=== PATIENT | male | born 1985 | race African-American/Black ===

== ENCOUNTER 2025-01-23 18:26 | Emergency (ER) | payer OTHER, SELFPAY ==
[2025-01-23] VITALS (12 sets, daily range): BP systolic 118–156; BP diastolic 68–117; PULSE 79–88; RESP 16–20; TEMP 36.8; O2SAT 96–98; BMI 34.2
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
--- NOTE | 2025-01-23 18:43 | PC.NURSE ---
this nurse placed a c collar on pt upon arrival
--- NOTE | 2025-01-23 18:47 | ECG_ITS ---
APPROVED REPORT Exam: Resting ECG HR:86 bpm ECG Measurements Heart Rate 86 AXES CO 159 P -38 QRSd 86 QRS 87 QT 334 T -41 QTc [address] DEVIATION AND MODERATE T-WAVE ABNORMALITY, CONSIDER INFERIOR ISCHEMIA [-0.1+ mV T-WAVE IN II/aVF] ABNORMAL ECG UNCONFIRMED REPORT Electronically signed by : ZO MCKAY, 01/24/2025 05:21:53
[2025-01-23] MEDS: DEXAMETHASONE 4MG/ML 1ML VIAL 8 MG IV (18:59)
[2025-01-23] MEDS: ONDANSETRON 4MG/2ML VIAL 4 MG IV (18:59)
[2025-01-23] MEDS: MORPHINE 4MG/ML SYRINGE 4 MG IV ×2 (18:59→20:27)
[2025-01-23] MEDS: 0.9 % SODIUM CHLORIDE 1000ML 1,000 ML 999 ML IV (18:59)
[2025-01-23 19:11] LABS: Hematocrit 44.2 % (42.0-52.0); Hemoglobin 15.0 g/dL (14.1-18.0); Immature Granulocytes % 0.2 %; Mean Corpuscular HGB Conc 33.9 g/dL (31.8-35.4); Mean Corpuscular Hemoglobin 26.9 pg (27.0-31.2); Mean Corpuscular Volume 79.2 fl (80-94); Nucleated Red Blood Cells % 0 %; Platelet Count 262 K/mm3 (142-424); Red Blood Count 5.58 M/mm3 (4.60-6.20); Red Cell Distribution Width-SD 37.8 fL; White Blood Count 6.4 K/mm3 (4.8-10.8)
--- NOTE | 2025-01-23 19:14 | PC.NURSE ---
Report received from Eva FARRIS Pt awake alert and oriented Skin pink warm and dry C-collar in place Resp full and easy Speech clear and appropriate. IV site without redness or edema
--- NOTE | 2025-01-23 19:27 | ECG_ITS ---
APPROVED REPORT Exam: Resting ECG HR:73 bpm ECG Measurements Heart Rate 73 AXES NM 165 P 5 QRSd 85 QRS 68 QT 354 T -5 QTc 380 Conclusion SINUS RHYTHM NONSPECIFIC T-WAVE ABNORMALITY ABNORMAL ECG UNCONFIRMED REPORT Electronically signed by : ZO MCKAY, 01/24/2025 05:21:46
[2025-01-23 19:28] LABS: Activated Partial Thrombo Time 30.3 seconds (22.8-30.6); INR 0.92 (0.9-1.1); Prothrombin Time 10.3 seconds (10.1-12.5)
[2025-01-23 19:35] LABS: Alanine Aminotransferase 38 U/L (12-78); Albumin Level 4.3 g/dl (3.5-5.0); Albumin/Globulin Ratio 1.2 (1.1-1.8); Alkaline Phosphatase 79 U/L (38-126); Anion Gap 12.9 mEq/L (5-15); Aspartate Amino Transferase 33 U/L (17-59); Bilirubin,Total 0.3 mg/dl (0.2-1.3); Blood Urea Nitrogen 18 mg/dl (9-20); Calcium 9.2 mg/dl (8.4-10.2); Carbon Dioxide 22 mmol/L (22.0-30.0); Chloride 103 mmol/L (98-107); Creatinine Clearance Estimated 140 mL/min (50-200); Creatinine,Serum 1.10 mg/dl (0.66-1.25); Estimated Glomerular Filt Rate 74 ml/min (>60); GFR (African American) 90 ML/MIN (>60); Globulin 3.5 g/dL (1.3-3.2); Glucose 107 mg/dl (74-100); Lipase 137 U/L (23-300); Magnesium 1.8 mg/dl (1.6-2.3); Potassium 3.9 mmoL/L (3.5-5.1); Sodium 134 mmol/L (136-145); Total Protein,Serum 7.8 g/dl (6.3-8.2)
[2025-01-23 19:50] LABS: Troponin I < 0.01 ng/ml (0.00-0.034)
--- OUTSIDE RECORDS SUMMARY | 2025-01-23 20:37 | XMS_ITS | Clinical Summary ---
Author Organization [facility] Address [address] [place] [address] Care Team Providers Care Regulatory And Compliance Technician Name Role Phone Provider, No Known Primary Care Provider Unavail able Allergies No known active allergies Medications azithromycin (ZITHROMAX) 250 MG tablet Take 2 tablets the first day, then 1 tablet daily for 4 days. 6 tablet 11/08/2021 Active methylPREDNISol one (MEDROL) 4 MG dose pack Take as directed on package instructions. 21 tablet 11/08/2021 Active albuterol sulfate HFA 108 (90 Base) MCG/ACT inhaler Inhale 2 puffs Every 6 (Six) Hours As Needed for Wheezing. 18 g 11/08/2021 Active Social History Tobacco Use Types Packs/Day Years Used Date Smoking Tobacco: Never Assessed Abuse Screen Answer Date Recorded Unsafe at Home or Work/School Not on file Feels Threatened by Someone? Not on file Does Anyone Keep You from Co ntacting Others or Doint Things Outside the Home? Not on file 12/26/2022 Physical Sign of Abuse Present Not on file 1 Housing Stability Answer Date Recorded Current Living Arrangements Not on file 12/14 Potentially Unsafe Housing Conditions Not on navya e 12/26/2022 Family and Community Support Answer Francisco J e Recorded Help with Day-to-Day Activities Not on file 12/26/2022 Lonely or Isolated Not on file 12/26/2022 Employment Answer Date Recorded Do you want help finding or keeping work or a heidi b? Not on file 12/26/2022 Disabilities Answer Date Recorded Concentrating, Remembering, or Making Decisions Difficulty Not on file 12/26/2022 Doing Errands Independently Difficulty Not on fi le 12/26/2022 Education Answer Date Recorded Help with school or training? Not on file Preferred Language Not on file 12/26/2022 Sex and Gender Information Value Date Recorded Sex Assigned at Not on file Legal Sex Male 11:48 AM EDT Gender Identity Not on file Sexual Orientation Not on file Last Filed Vital Signs Vital Sign Reading Time Taken Comments Blood Pressure 127/60 11/08/2021 3:31 PM EDT Pulse 67 11/08/2021 3:31 PM EDT Temperature 36.6 C (97.9 F) 11/08/2021 11:50 AM EDT Respiratory Rate 20 11/08/2021 11:50 AM EDT Oxygen Saturation 99% 11/08/2021 3:31 PM EDT Inhaled Oxygen Concentration - - Weight 90.7 kg (200 lb) 11/08/2021 11:50 AM EDT Height 180.3 cm (5' 11 ) 11/08/2021 11:50 AM EDT Body Mass Index 27.89 11/08/2021 11:50 AM EDT Plan of Treatment Health Maintenance Due Date Last Done Comments ANNUAL PHYSICAL 1984 HEPATITIS C SCREENING 1984 TDAP/TD VACCINES (1 - Tdap) 2003 INFLUENZA VACCINE 10/14/2024 Pneumococcal Vaccine 0-49 Aged Out No longer eligible based on patient's age to complete this topic Insurance [facility] Care Teams Regulatory And Compliance Technician Relationship Specialty Start Date End Date Provider, No Known [facility] [place] [address] PCP - General 11/08/21
--- OUTSIDE RECORDS SUMMARY | 2025-01-23 20:37 | XMS_ITS | Clinical Summary ---
Author Organization [employer] ([place], [place], [place], [place], [place]) Address [address] [place] [address] Care Team Providers Care Market Researcher Name Role Phone Unavailable Primary Care Provider Unavailabl e Social History Tobacco Use Types Packs/Day Years Used Date Smoking Tobacco: Never Assessed Food Insecurity Answer Date Recorded Food run out past 12 months Not on file 03/17 Food did not last past 12 months Not on file 04/04/2023 Employment Answer Date Recorded Help finding and keeping a job Not on file 0 04/04/2023 Family and Community Support Answer Francisco J e Recorded Help with Day to Day Activities Not on file 04/04/2023 Feeling Lonely or Isolated Not on file 04/04 Educational Attainment Answer Date Armando rded Speak language other than Micronesian at home Not on file 04/04/2023 Want help with school or training Not on file 04/04/2023 Substance Use Answer Date Recorded Used prescription meds for non-medical reasons N ot on file 04/04/2023 Used illegal drugs past 12 months Not on file 04/04/2023 Sex and Gender Information Value Date Recorded Sex Assigned at Not on file 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
--- OUTSIDE RECORDS SUMMARY | 2025-01-23 20:37 | XMS_ITS | Referral Summary ---
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
--- NOTE | 2025-01-23 21:26 | PC.NURSE ---
knee immobilizer and crutches given to client with instruction by the EDT
== END 2025-01-23 21:37 | disposition home or self-care (01) ==
PROVIDERS: Nurse Practitioner; Emergency Provider Student in an Organized Health Care Education/Training Program
DX: M23.92 Unspecified internal derangement of left knee (principal); M54.2 Cervicalgia; V49.40XA Driver injured in collision with unspecified motor vehicles in traffic accident, initial encounter
CPT/HCPCS: 70450; 71250; 72125; 73562; 73700; 80053; 83690; 83735; 84484; 85025; 85610; 85730; 93005; 96361; 96374; 96375; 96376; 99285; J1100; J2270; J2405; J7030